=== PATIENT | male | born 1980 | race Caucasian/White ===

== ENCOUNTER 2018-05-19 22:59 | Emergency (ER) | payer MEDICAID ==
[~2018-05-19] VITALS: Ht 190.5 cm; Wt 98.9 kg
[2018-05-19 23:36] LABS: ALANINE AMINOTRANSFERASE 27 U/L (12-78); ALBUMIN/GLOBULIN RATIO 1.1 (1.1-1.5); ALKALINE PHOSPHATASE 40 IU/L (46-116); ANION GAP 9 (8-16); ASPARTATE AMINO TRANSFERASE 22 U/L (10-37); BILIRUBIN,TOTAL 0.3 MG/DL (0.1-1.0); BLOOD UREA NITROGEN 19 MG/DL (7-18); BUN/CREATININE RATIO 19.6 (5.4-32.0); CALCIUM 9.2 MG/DL (8.5-10.1); CHLORIDE 106 MMOL/L (99-107); CREATININE 0.97 MG/DL (0.60-1.10); GLUCOSE 110 MG/DL (70-104); POTASSIUM 4.1 MMOL/L (3.5-5.1); SODIUM 144 MMOL/L (135-145); TOTAL CARBON DIOXIDE 29.4 MMOL/L (24-32); TOTAL PROTEIN 7.6 G/DL (6.4-8.2); eGFR 87 ML/MIN
[2018-05-19 23:41] LABS: BASOPHILS % (AUTO) 0.5 % (0-1); EOSINOPHILS # (AUTO) 0.2 X10'3 (0-0.9); HEMATOCRIT 45.2 % (42.0-52.0); HEMOGLOBIN 15.5 g/dl (14.0-17.9); LYMPHOCYTES # (AUTO) 2.4 X10'3 (1.1-4.8); LYMPHOCYTES % (AUTO) 25.1 % (21-51); MEAN CORPUSCULAR HEMOGLOBIN 29.5 PG (27.0-31.0); MEAN CORPUSCULAR HGB CONC 34.3 g/dL (33.0-36.5); MONOCYTES # (AUTO) 0.7 X10'3 (0-0.9); MONOCYTES % (AUTO) 6.9 % (2-12); NEUTROPHILS # (AUTO) 6.2 X10'3 (1.8-7.7); NEUTROPHILS % (AUTO) 65.5 % (42-75); PLATELET COUNT 239 X10'3 (140-440); RED BLOOD COUNT 5.26 X10'6 (4.70-6.10); RED CELL DISTRIBUTION WIDTH 17.7 % (11.5-14.5); WHITE BLOOD COUNT 9.5 X10'3 (4.5-11.0)
[2018-05-19 23:53] VITALS: BP 117/80
[2018-05-19] MEDS ORDERED: ALBU8HFA PO (23:59)
[2018-05-19] MEDS ORDERED: PRED20TA PO (23:59)
[2018-05-19] MEDS ORDERED: DOXY100C43 PO (23:59)
== END 2018-05-20 01:32 | disposition home or self-care (01) ==
LOC: ER 23:00
DX: J20.9 Acute bronchitis, unspecified (principal); F17.200 Nicotine dependence, unspecified, uncomplicated
CPT/HCPCS: 36415; 71046; 80053; 84484; 85025; 93005; 99284